=== PATIENT | male | born 1960 | race Two or more races ===

== ENCOUNTER → 2024-10-04 | Outpatient (CLI) | payer MEDICAID, SELFPAY ==
--- NOTE | 2024-10-04 09:46 | XR_ITS ---
Examination: Esophagram standard Fluoroscopy Upright PA chest single view Upright soft tissue lateral neck single view 23 spot fluoroscopic films of the esophagus Exam date and time: October 04, 2024 1038 hours INDICATIONS: Difficulty swallowing post surgery 2 years ago. 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
== END | disposition home or self-care (01) ==
LOC: CDIM 09:11
PROVIDERS: PCP Nurse Practitioner Family; Referring Provider Nurse Practitioner Family; Visit Provider Nurse Practitioner Family
DX: K21.9 Gastro-esophageal reflux disease without esophagitis (principal)
CPT/HCPCS: 74220; A4699